=== PATIENT | female | born 1960 | race Caucasian/White ===

== ENCOUNTER 2018-04-12 23:32 | Emergency (ER) | payer MEDICAID ==
[2018-04-12 23:32] VITALS: BMI 28.3
[2018-04-12 23:46] VITALS: BP 165/90; RESP 18; TEMP 97.6
--- NOTE | 2018-04-12 23:57 | ED PDOC ---
Arrival/HPI - General Chief Complaint: Female Genitourinary Time Seen by Provider: 04/12/18 23:47 Historian: Patient, Spouse, Family - History of Present Illness Narrative History of Present Illness (Text): 04/12/18 23:57 This 57 yo female presents to this ED with family c/o dysuria, hematuria, urinary frequency and urgency since this morning. Patient denies vaginal discharge, flank pain, fever, or skin rash. Time/Duration: Other (see hpi) Context: Home Past Medical History - Provider Review Nursing Documentation Reviewed: Yes - Infectious Disease Hx of Infectious Diseases: None - Tetanus Immunization Tetanus Immunization: Unknown - Reproductive Menopause: Yes - Psychiatric Hx Depression: No Hx Emotional Abuse: No Hx Physical Abuse: No Hx Substance Use: No - Suicidal Assessment Feels Threatened In Home Enviroment: No Family/Social History - Physician Review Nursing Documentation Reviewed: Yes Family/Social History: Other (noncontributory) Smoking Status: Never Smoked Hx Alcohol Use: No Hx Substance Use: No Hx Substance Use Treatment: No Allergies/Home Meds Allergies/Adverse Reactions: Allergies No Known Allergies Allergy (Verified 04/12/18 23:42) Review of Systems - Review of Systems Constitutional: Normal. absent: Fatigue, Weight Change, Fevers Eyes: Normal ENT: Normal Respiratory: Normal. absent: SOB, Cough Cardiovascular: Normal. absent: Chest Pain Gastrointestinal: Normal Genitourinary Female: Dysuria, Frequency, Hematuria. absent: Vaginal Bleeding, Vaginal Discharge Musculoskeletal: Normal. absent: Back Pain, Neck Pain, Myalgias Skin: Normal. absent: Rash Neurological: Normal. absent: Headache, Dizziness, Focal Weakness, Gait Changes , Speech Changes, Facial Droop, Disequilibrium, Seizure Endocrine: Normal Hemo/Lymphatic: Normal Psychiatric: Normal Physical Exam Vital Signs Temp Pulse Resp BP Pulse Ox 04/13/18 01:24 18 98 04/13/18 01:08 81 18 99 04/12/18 23:43 97.6 F 76 18 165/90 H 100 Temperature: Afebrile Blood Pressure: Normal Pulse: Regular Respiratory Rate: Normal Appearance: Positive for: Well-Appearing, Non-Toxic, Comfortable Pain Distress: None Mental Status: Positive for: Alert and Oriented X 3 - Systems Exam Head: Present: Atraumatic, Normocephalic Pupils: Present: PERRL Extroacular Muscles: Present: EOMI Conjunctiva: Present: Normal Mouth: Present: Moist Mucous Membranes Neck: Present: Normal Range of Motion Respiratory/Chest: Present: Clear to Auscultation, Good Air Exchange. No: Respiratory Distress, Accessory Muscle Use Cardiovascular: Present: Regular Rate and Rhythm, Normal S1, S2. No: Murmurs Abdomen: No: Tenderness, Distention, Peritoneal Signs, Rebound, Guarding Back: Present: Normal Inspection. No: CVA Tenderness Upper Extremity: Present: Normal Inspection. No: Cyanosis, Edema Lower Extremity: Present: Normal Inspection. No: Edema Neurological: Present: GCS=15, CN II-XII Intact, Speech Normal Skin: Present: Warm, Dry, Normal Color. No: Rashes Psychiatric: Present: Alert, Oriented x 3, Normal Insight, Normal Concentration Medical Decision Making ED Course and Treatment: 04/13/18 00:56 Re-evaluation. Patient feels better. Discussed results and plan with patient who expresses understanding. All questions answered and there is agreement with the plan to discharge home with instructions. Patient stable for discharge. Return if symptoms persist or worsen. Re-evaluation Time: 00:56 Reassessment Condition: Re-examined, Improved - Lab Interpretations Lab Results: Lab Results 04/13/18 00:00: Urine Color Red, Urine Appearance Cloudy, Urine pH 6.0, Ur Specific [place] 1.015, Urine Protein 30 H, Urine Glucose (UA) Negative, Urine Ketones Negative, Urine Blood Large H, Urine Nitrate Negative, Urine Bilirubin Negative, Urine Urobilinogen 0.2, Ur Leukocyte Esterase Moderate H, Urine RBC 25 - 30, Urine WBC 10 - 15, Ur Epithelial Cells 0 - 2, Urine Bacteria Few I have reviewed the lab results: Yes Interpretation: Abnormal lab values - Medication Orders Current Medication Orders: Discontinued Medications Cephalexin Monohydrate (Keflex) 500 mg PO STAT STA PRN Reason: Protocol Stop: 04/13/18 00:32 Last Admin: 04/13/18 00:37 Dose: 500 mg Ketorolac Tromethamine (Toradol) 15 mg IM STAT STA Stop: 04/13/18 00:33 Last Admin: 04/13/18 00:41 Dose: 15 mg MAR Pain Assessment Document 04/13/18 00:41 SS (Rec: 04/13/18 00:41 SS [id number]) Pain Reassessment Is this a pain reassessment? No Sleep Is patient sleeping during reassessment? No Presence of Pain Presence of Pain Yes Pain Scale Used Pain Scale Used Numeric IM Administration Charges Document 04/13/18 00:41 SS (Rec: 04/13/18 00:41 SS [id number]) Charges for Administration # of IM Administrations 1 Phenazopyridine HCl (Pyridium) 200 mg PO STAT STA Stop: 04/13/18 00:32 Last Admin: 04/13/18 00:37 Dose: 200 mg Disposition/Present on Arrival - Present on Arrival Any Indicators Present on Arrival: No History of DVT/PE: No History of Uncontrolled Diabetes: No Urinary Catheter: No History of Decub. Ulcer: No History Surgical Site Infection Following: None - Disposition Have Diagnosis and Disposition been Completed?: Yes Diagnosis: Acute cystitis Disposition: HOME/ ROUTINE Disposition Time: 00:56 Patient Plan: Discharge Patient Problems: Current Active Problems Problem Status Onset Acute cystitis Acute Condition: IMPROVED Discharge Instructions (ExitCare): Acute Cystitis (DC) Additional Instructions: Call private doctor for follow up visit in 1-2 days. take medication as instructed. return to emergency if symptoms worsen, or if you develop fever or flank pain. Review urine culture result with your doctor in 2-3 days. Prescriptions: Cephalexin [cephalexin] 500 mg PO BID #20 cap Ibuprofen [Motrin] 400 mg PO Q8H PRN #20 tab PRN Reason: Pain, Severe (8-10) Phenazopyridine HCl [Pyridium] 200 mg PO TID #6 tablet Referrals: [facility] [Outside] - Follow up with primary [facility] [Outside] - Follow up with primary Forms: [employer] (German)
[2018-04-13 00:14] LABS: URINE BILIRUBIN NEGATIVE (NEGATIVE); URINE BLOOD LARGE (NEGATIVE); URINE GLUCOSE (UA) NEGATIVE (NEGATIVE); URINE LEUKOCYTE ESTERASE MODERATE Leu/uL (NEGATIVE); URINE PROTEIN 30 mg/dL (<30 mg/dL); URINE UROBILINOGEN 0.2 E.U./dL (<1 E.U./dL)
[2018-04-13 00:17] LABS: URINE APPEARANCE CLOUDY (CLEAR); URINE COLOR RED (YELLOW)
[2018-04-13 00:26] LABS: URINE EPITHELIAL CELLS 0 - 2 /hpf (0-5); URINE RBC 25 - 30 /hpf (0-2)
[2018-04-13 00:27] LABS: URINE BACTERIA FEW (NEG)
[2018-04-13 01:25] VITALS: PULSE 81
[2018-04-13 01:29] VITALS: O2SAT 98
== END 2018-04-13 02:01 | disposition home or self-care (01) ==
LOC: ED 23:32
DX: N30.01 Acute cystitis with hematuria (principal)
CPT/HCPCS: 81001; 87086; 96372; 99283; J1885

== ENCOUNTER 2018-11-21 17:14 | Emergency (ER) | payer MEDICAID ==
[2018-11-21 17:28] VITALS: RESP 18; TEMP 98.2
--- NOTE | 2018-11-21 18:29 | ED PDOC ---
Arrival/HPI - General Chief Complaint: Upper Extremity Problem/Injury Time Seen by Provider: 11/21/18 17:29 Historian: Patient - History of Present Illness Narrative History of Present Illness (Text): 11/22/18 01:43 58 yo F c/o chronic R shoulder pain x 2 months, states that she has seen her pmd regarding her symptoms and he referred her to ortho. She then saw the orthopedist and had an outpatient XR, currently her ortho placed her on PT, which she has been going for x 2 weeks, as well as taking celecoxib, diclofenac cream and topical lidocaine. Otherwise, reports no headache, neck pain, back pain, trauma, injury, numbness, decrease in ROM or other joint pain. She reports that the pain has been uncontrollable lately and is asking for stronger pain medication. Past Medical History - Infectious Disease Hx of Infectious Diseases: None - Tetanus Immunization Tetanus Immunization: Unknown - Psychiatric Hx Depression: No Hx Emotional Abuse: No Hx Physical Abuse: No Hx Substance Use: No - Suicidal Assessment Feels Threatened In Home Enviroment: No Family/Social History Family/Social History: No Known Family HX Smoking Status: Never Smoked Hx Alcohol Use: No Hx Substance Use: No Hx Substance Use Treatment: No Allergies/Home Meds Allergies/Adverse Reactions: Allergies No Known Allergies Allergy (Verified 04/12/18 23:42) Home Medications: Home Meds Medication Instructions Recorded Confirmed Celecoxib [Celebrex] 1 tab PO Q12H 11/21/18 11/21/18 Review of Systems - Review of Systems Constitutional: absent: Fatigue Musculoskeletal: Arthralgias. absent: Back Pain, Neck Pain Skin: absent: Rash, Pruritis, Skin Lesions Neurological: absent: Dizziness Physical Exam Vital Signs Temp Pulse Resp BP Pulse Ox 11/21/18 17:27 98.2 F 84 18 167/108 H 98 Temperature: Afebrile Blood Pressure: Hypertensive Pulse: Regular Respiratory Rate: Normal Appearance: Positive for: Well-Appearing, Non-Toxic, Comfortable Pain Distress: Mild Mental Status: Positive for: Alert and Oriented X 3 - Systems Exam Head: Present: Atraumatic, Normocephalic Mouth: Present: Moist Mucous Membranes Neck: Present: Normal Range of Motion. No: MIDLINE TENDERNESS, Paraspinal Tenderness Upper Extremity: Present: Normal Inspection, Normal ROM, NORMAL PULSES, Neurovascularly Intact, Capillary Refill < 2s, Norm 2-Pt Discrimination. No: Cyanosis, Edema, Tenderness, Swelling, Temperature Abnormalties, Deformity Neurological: Present: GCS=15, CN II-XII Intact, Speech Normal, Motor Func Grossly Intact Skin: Present: Warm, Dry, Normal Color. No: Rashes Medical Decision Making ED Course and Treatment: 11/21/18 18:26 Patient medicated with tramadol by mouth. Advised to follow up with her ortho in 1-2 days without fail, continue taking current pain medications. Advised to take Rx medication as instructed for moderate to severe pain only. Advised of the side effects and complications of taking narcotic medications, including tolerance and addiction, which the patient understands. Return to the emergency room at any time for any new or worsening symptoms. Patient states she fully agrees with and understands discharge instructions. States that she agrees with the plan and disposition. Verbalized and repeated discharge instructions and plan. I have given the patient opportunity to ask any additional questions. - PA / FINANCIAL SALES ASSOCIATE / Resident Statement MD/DO has reviewed & agrees with the documentation as recorded. Disposition/Present on Arrival - Present on Arrival Any Indicators Present on Arrival: No History of DVT/PE: No History of Uncontrolled Diabetes: No Urinary Catheter: No History of Decub. Ulcer: No History Surgical Site Infection Following: None - Disposition Have Diagnosis and Disposition been Completed?: Yes Diagnosis: Chronic right shoulder pain Disposition: HOME/ ROUTINE Disposition Time: 18:15 Patient Plan: Discharge Condition: STABLE Discharge Instructions (ExitCare): Shoulder Pain (DC) Additional Instructions: Thank you for letting us take care of you today. You were treated for chronic right shoulder pain. The emergency medical care you received today was directed at your acute symptoms. If you were prescribed any medication, please fill it and take as directed, otherwise continue taking the pain medication your pmd and orthopedist had prescribed. It may take several days for your symptoms to resolve. Return to the Emergency Department if your symptoms worsen, do not improve, or if you have any other problems. Please contact your ortho doctor in 2 days for re-evaluation and follow up. Bring any paperwork you were given at discharge with you along with any medications you are taking to your follow up visit. Our treatment cannot replace ongoing medical care by a primary care provider (PCP) outside of the emergency department. Thank you for allowing the [facility] team to be part of your care today. Prescriptions: traMADol [Ultram] 50 mg PO TID PRN #15 tab PRN Reason: Pain, Moderate (4-7) Referrals: Aixa Galarza MD [Primary Care Provider] - Follow up with primary Forms: [employer] (Martiniquais), WORK NOTE
[2018-11-21 19:18] VITALS: BP 160/80; PULSE 74; O2SAT 100
== END 2018-11-21 19:21 | disposition home or self-care (01) ==
LOC: ED 17:14
DX: M25.511 Pain in right shoulder (principal); G89.29 Other chronic pain